=== PATIENT | female | born 1990 | race Caucasian/White ===

== ENCOUNTER 2017-11-01 21:00 | Emergency (ER) | payer BC ==
[~2017-11-01] VITALS: Ht 170.2 cm; Wt 68.0 kg
[2017-11-01] MEDS ORDERED: IBUPROFEN 600MG TABLET PO ONE (22:45)
[2017-11-01 23:52] VITALS: BP 138/74
== END 2017-11-02 05:25 | disposition home or self-care (01) ==
LOC: ER 21:00
DX: S93.402A Sprain of unspecified ligament of left ankle, initial encounter (principal); W10.8XXA Fall (on) (from) other stairs and steps, initial encounter; Y93.89 Activity, other specified; Y92.89 Other specified places as the place of occurrence of the external cause; R03.0 Elevated blood-pressure reading, without diagnosis of hypertension
CPT/HCPCS: 29515; 73610; 99284